=== PATIENT | male | born 1955 | race Caucasian/White ===

== ENCOUNTER 2016-11-27 07:27 | Inpatient (IN) | payer OTHER ==
[~2016-11-27] VITALS: Ht 172.7 cm; Wt 83.5 kg
[2016-11-27 08:11] LABS: BASOPHILS % (AUTO) 0.3 % (0.0-2.0); DIFF TOTAL % 100 %; EOSINOPHILS % (AUTO) 0.1 % (0.0-6.0); HEMATOCRIT 38 % (39-51); HEMOGLOBIN 13.2 g/dL (13.5-17.5); LYMPHOCYTES # (AUTO) 0.3 /CMM (0.8-4.8); MEAN CORPUSCULAR HEMOGLOBIN 31 PG (26.0-33.0); MEAN CORPUSCULAR HGB CONC 35 g/dl (31.0-36.0); MEAN CORPUSCULAR VOLUME 88 fL (80-96); MONOCYTES # (AUTO) 0.4 /CMM (0.1-1.30); MONOCYTES % (AUTO) 5.8 % (2.0-12.0); NEUTROPHILS # (AUTO) 5.8 /CMM (1.8-8.9); NEUTROPHILS % (AUTO) 88.8 % (43.0-81.0); PLATELET COUNT (AUTO) 136 /CMM (150-450); RED BLOOD CELL COUNT(AUTO) 4.32 MIL/uL (4.5-6.0); WHITE BLOOD COUNT (AUTO) 6.6 K/uL (4.3-11.0)
[2016-11-27 08:17] LABS: ANION GAP 12 (5-14); CARBON DIOXIDE 29 mmol/L (21-32); CHLORIDE 102 mmol/L (98-107); GFR 76 mL/min (>60); GLUCOSE 114 mg/dL (74-106); POTASSIUM 3.9 mmol/L (3.5-5.1); SODIUM SERUM 139 mmol/L (136-145); UREA NITROGEN, BLOOD 27 mg/dL (7-18)
[2016-11-27 08:22] LABS: TROPONIN I < 0.017 ng/mL (0.00-0.056)
[2016-11-27 08:24] LABS: LACTIC ACID 1.1 mmol/L (0.4-2.0)
[2016-11-27 08:31] LABS: ALANINE AMINOTRANSFERASE 29 U/L (12-78); ALBUMIN 4.4 g/dL (3.4-5.0); ASPARTATE AMINOTRANSFERASE 28 U/L (15-37); BILIRUBIN,DIRECT 0.2 mg/dL (0.0-0.2); BILIRUBIN,TOTAL 0.7 mg/dL (0.2-1.0); INDIRECT BILIRUBIN 0.5 mg/dL (0.0-1.1); TOTAL PROTEIN, SERUM 8.2 g/dL (6.4-8.2)
[2016-11-27 08:34] LABS: THYROID STIMULATING HORMONE 0.778 uIU/mL (0.358-3.74)
[2016-11-27 08:35] LABS: ACETAMINOPHEN 0 ug/ml (10-30); SALICYLATE 1.7 mg/dL (2.8-20.0)
[2016-11-27 09:15] VITALS: BP 130/72
[2016-11-27] MEDS ORDERED: IV D5/0.45 NACL 1,000 ML IV PRN ×2 (10:20→12:09)
[2016-11-27] MEDS ORDERED: Z GUARD REMEDY 2 OZ OINT TP PRN (10:30)
[2016-11-27] MEDS ORDERED: MAGNESIUM HYDROXIDE 30 ML UDC PO PRN (10:30)
[2016-11-27] MEDS ORDERED: PANTOPRAZOLE 40 MG TABLET.DR PO SCH (10:30)
[2016-11-27] MEDS ORDERED: ONDANSETRON HCL/PF 4 MG/2 ML VIAL IVP PRN (10:30)
[2016-11-27] MEDS ORDERED: MAG HYDROX/AL HYDROX/SIMETH 30 ML UDC PO PRN (10:30)
[2016-11-27 10:58] LABS: ABG BASE EXCESS 0.3 mmol/L; ABG HCO3 25.7 mmol/L; ABG PCO2 44.4 mmHg (35.0-45.0); ABG PO2 116.5 mmHg (75.0-100.0); ABG TOTAL HEMOGLOBIN 13.1 G/dL (13.5-18.0); ALLEN TEST Pass; AaDO2 23.5 mmHg; O2Hb 96.3 % (94.0-97.0)
[2016-11-27] MEDS ORDERED: IV SET PRIMARY PUMP SET 1 EA INFUS.SET MC ONE (11:35)
[2016-11-27 13:30] LABS: PHOSPHORUS 3.9 mg/dL (2.5-4.9)
[2016-11-27 13:33] LABS: TROPONIN I < 0.017 ng/mL (0.00-0.056)
[2016-11-27 13:38] LABS: IRON, SERUM 34 ug/dl (50-175); PERCENT SATURATION 9 % (14-33); TOTAL IRON BINDING CAPACITY 368 ug/dl (250-450)
[2016-11-27 13:42] LABS: CHOLESTEROL 142 mg/dL (<200); HDL CHOLESTEROL 59 mg/dL (40-60); LDL 78 mg/dL (0-99); THYROID STIMULATING HORMONE 0.551 uIU/mL (0.358-3.74); TRIGLYCERIDES 11 mg/dL (30-150)
[2016-11-27 16:00] VITALS: BP 133/71
[2016-11-27 20:00] VITALS: BP 98/53
[2016-11-27 22:00] VITALS: BP 98/53
[2016-11-28] VITALS: BP 112/70
[2016-11-28 04:00] VITALS: BP 120/70
[2016-11-28] MEDS: ACETAMINOPHEN 325 MG TABLET PO PRN ×2 (05:08→05:15)
[2016-11-28 06:55] VITALS: BP 104/62
[2016-11-28 07:22] LABS: BASOPHILS % (AUTO) 0.6 % (0.0-2.0); DIFF TOTAL % 100 %; HEMATOCRIT 36 % (39-51); HEMOGLOBIN 12.1 g/dL (13.5-17.5); LYMPHOCYTES # (AUTO) 0.8 /CMM (0.8-4.8); MEAN CORPUSCULAR HEMOGLOBIN 30 PG (26.0-33.0); MEAN CORPUSCULAR HGB CONC 34 g/dl (31.0-36.0); MEAN CORPUSCULAR VOLUME 89 fL (80-96); MONOCYTES # (AUTO) 0.5 /CMM (0.1-1.30); MONOCYTES % (AUTO) 12.2 % (2.0-12.0); NEUTROPHILS # (AUTO) 2.5 /CMM (1.8-8.9); NEUTROPHILS % (AUTO) 65.2 % (43.0-81.0); PLATELET COUNT (AUTO) 110 /CMM (150-450); RED BLOOD CELL COUNT(AUTO) 3.98 MIL/uL (4.5-6.0); WHITE BLOOD COUNT (AUTO) 3.9 K/uL (4.3-11.0)
[2016-11-28 07:53] LABS: POTASSIUM 3.8 mmol/L (3.5-5.1)
[2016-11-28 07:54] LABS: ALBUMIN 3.5 g/dL (3.4-5.0); BILIRUBIN,TOTAL 0.8 mg/dL (0.2-1.0); CALCIUM, SERUM 8.2 mg/dL (8.5-10.1); CREATININE 0.8 mg/dL (0.6-1.3); PHOSPHORUS 2.4 mg/dL (2.5-4.9)
[2016-11-28 08:00] VITALS: BP 120/70
== END 2016-11-28 10:00 | disposition left against medical advice (07) | DRG 133 ==
LOC: ER 07:28 → TELE 09:09 → MED 11-28 09:37
PROVIDERS: ADMIT Internal Medicine; ATTEND Internal Medicine
DX: J96.91 Respiratory failure, unspecified with hypoxia (principal); G92 Toxic encephalopathy; I10 Essential (primary) hypertension; R55 Syncope and collapse; D50.9 Iron deficiency anemia, unspecified; R79.89 Other specified abnormal findings of blood chemistry; W19.XXXA Unspecified fall, initial encounter; Y93.9 Activity, unspecified; Y92.009 Unspecified place in unspecified non-institutional (private) residence as the place of occurrence of the external cause; Y99.9 Unspecified external cause status
CPT/HCPCS: 36415; 36600; 70450-TC; 71010-TC; 80048-TC; 80053-TC; 80061-TC; 80076-TC; 82140-TC; 82306; 82728-TC; 82746; 82962-TC; 83540-TC; 83605-TC; 83735-TC; 84100-TC; 84439-TC; 84443-TC; 84484-TC; 85025-TC; 87081-TC; 93307-TC; A4606; G6038-TC; G6039-TC; G6040-TC; J3490; Z7610

== ENCOUNTER 2016-12-19 07:40 | Emergency (ER) | payer OTHER ==
[~2016-12-19] VITALS: Ht 157.5 cm; Wt 65.8 kg
[2016-12-19 07:57] VITALS: BP 164/106
== END 2016-12-19 08:41 | disposition home or self-care (01) ==
LOC: ER 07:46
DX: F41.9 Anxiety disorder, unspecified (principal); F32.9 Major depressive disorder, single episode, unspecified; M06.9 Rheumatoid arthritis, unspecified
CPT/HCPCS: 99281; A4606; Z7610; Z7502

== ENCOUNTER 2017-03-01 16:26 | Emergency (ER) | payer OTHER ==
[~2017-03-01] VITALS: Ht 160 cm; Wt 75.3 kg
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
[2017-03-01 17:15] VITALS: BP 112/64
--- NOTE | 2017-03-01 17:15 | NUR ---
Patient discharged to home in stable condition. Written and verbal after care instructions given. Patient verbalizes understanding of instruction.
== END 2017-03-01 17:16 | disposition home or self-care (01) ==
LOC: ER 16:28
DX: S20.211A Contusion of right front wall of thorax, initial encounter (principal); I10 Essential (primary) hypertension; F32.9 Major depressive disorder, single episode, unspecified; F41.9 Anxiety disorder, unspecified; Y04.0XXA Assault by unarmed brawl or fight, initial encounter; Y92.89 Other specified places as the place of occurrence of the external cause; Y93.89 Activity, other specified
CPT/HCPCS: 99283; A4606; Z7610